=== PATIENT | male | born 1995 | race Asian ===

== ENCOUNTER 2019-04-19 04:16 | Emergency (ER) | payer SELFPAY ==
[~2019-04-19] VITALS: Ht 170.2 cm; Wt 68.0 kg
--- NOTE | 2019-04-19 04:25 | NUR ---
ED Nurse Note: Kezia presents BIBA from a [facility]arant. Patient has ETOH intoxication. Arousable at A&Ox3 en route. Patient is currently sleeping, no s/s of acute distress.
[2019-04-19 04:26] VITALS: BP 128/78
--- NOTE | 2019-04-19 04:34 | Emergency Room Report ---
History of Present Illness General Chief Complaint: Alcohol Intoxication Source: EMS Present Illness HPI Is a 24-year-old male brought in by EMS for alcohol intoxication. Security had a nearby [place] restaurant called 911 because patient was passed out in the bathroom. He had been in the restaurant for a few hours drinking. He went to the bathroom he was found sleeping on the toilet. There is no trauma. Patient responded to painful stimuli. No nausea no vomiting. No other injury. Unable to get any other history from this patient. Allergies: Coded Allergies: UNABLE TO ASSESS (Unverified , 04/19/19) Patient History Past Medical History: see triage record, old chart reviewed, unable to obtain Past Surgical History: unable to obtain Pertinent Family History: unable to obtain Social History: Reports: alcohol use Immunizations: other Reviewed Nursing Documentation: PMH: Agreed; PSxH: Agreed Nursing Documentation-PMH Past Medical History: Deferred Review of Systems All Other Systems: limited - secondary to intoxication Physical Exam Vital Signs Date Time Temp Pulse Resp B/P (MAP) Pulse Ox O2 Delivery O2 Flow Rate FiO2 04/19/19 04:12 98.8 89 18 128/78 (95) 98 Room Air Sp02 EP Interpretation: reviewed, normal General Appearance: well appearing, no apparent distress, other - Somnolent, snoring Head: normocephalic, atraumatic Eyes: bilateral eye PERRL, bilateral eye EOMI ENT: hearing grossly normal, normal pharynx Neck: full range of motion, supple, no meningismus Respiratory: chest non-tender, lungs clear, normal breath sounds Cardiovascular #1: regular rate, rhythm, no murmur Gastrointestinal: normal bowel sounds, non tender, no mass, no organomegaly, no bruit, non-distended Musculoskeletal: back normal, normal range of motion Neurologic: grossly normal Psychiatric: mood/affect normal Medical Decision Making Diagnostic Impression: Primary Impression: Acute alcoholic intoxication Qualified Codes: F10.920 - Alcohol use, unspecified with intoxication, uncomplicated ER Course Patient presents with alcohol intoxication. No trauma to warrant CT scan. Will observe until clinical sobriety. Last Vital Signs Date Time Temp Pulse Resp B/P (MAP) Pulse Ox O2 Delivery O2 Flow Rate FiO2 04/19/19 04:12 98.8 89 18 128/78 (95) 98 Room Air Status: improved Disposition: HOME, SELF-CARE Condition: Stable Patient Instructions: Alcohol Intoxication, [id number] Additional Instructions: Follow-up with in 7 days. Return if symptoms worsen. Joey Marshall MD Apr 19, 2019 04:34
--- NOTE | 2019-04-19 05:41 | NUR ---
ED Nurse Note: Patient still sleeping soundly. No s/s of acute distress, Chest rise and fall symmetric. Will continue to monitor.
--- NOTE | 2019-04-19 06:22 | NUR ---
ED Nurse Note: pt arousable to light shake, pt states he is traveling here alone from [place], pt denies any medical hx, nor drug allergies, pt states he will uber back to hotel.
[2019-04-19 08:24] VITALS: BP 135/70
--- NOTE | 2019-04-19 08:24 | NUR ---
ER DISCHARGE NOTE: Patient is cleared to be discharged per ERMD, pt is aox4, on room air, with stable vital signs. pt was given dc and prescription instructions, pt was able to verbalize understanding, pt id band removed without complications. pt is able to ambulate with steady gait. pt took all belongings.
== END 2019-04-19 08:24 | disposition home or self-care (01) ==
LOC: EDBD 04:16 → EMR 04:46
DX: F10.129 Alcohol abuse with intoxication, unspecified (principal)
CPT/HCPCS: 99283